=== PATIENT | female | born 1985 | race Caucasian/White ===

== ENCOUNTER 2020-01-01 06:10 | Day surgery (SDC) | payer OTHER, SELFPAY ==
[2019-12-28 10:48] LABS: BASOPHIL % 0.3 % (0-2); CHLORIDE SERUM 105 mmol/L (98-107); CREATININE SERUM 0.8 mg/dL (0.6-1.0); GFR1 > 60 mL/min; GLUCOSE SERUM 99 mg/dL (74-106); PLATELET COUNT 220 x10^3mcL (130-400); POTASSIUM SERUM 4.6 mmol/L (3.5-5.1); SODIUM SERUM 140 mmol/L (136-145)
[~2020-01-01] VITALS: Ht 154.9 cm; Wt 75.3 kg
[2020-01-01 06:30] VITALS: BP 143/95
[2020-01-01 13:03] VITALS: BP 138/73
== END 2020-01-01 12:05 | disposition home or self-care (01) ==
LOC: DS 06:10 → OR 07:30 → DS 08:00
PROVIDERS: ATTEND Obstetrics & Gynecology
DX: Z30.2 Encounter for sterilization (principal); Z11.59 Encounter for screening for other viral diseases
CPT/HCPCS: J0690; J2001; J2175; J2250; J3010; J3490; U0003-CS